=== PATIENT | female | born 1960 | race African-American/Black ===

== ENCOUNTER 2018-07-14 08:42 | Day surgery (SDC) | payer OTHER ==
[~2018-07-14] VITALS: Ht 157.5 cm; Wt 131.6 kg
[2018-07-14] VITALS (17 sets, daily range): BP systolic 92–135; BP diastolic 53–86; PULSE 84–104; RESP 11–22; Ht 157.5 cm; Wt 131.6 kg
[2018-07-14] MEDS ORDERED: MONT10TA21 PO (09:48)
[2018-07-14] MEDS ORDERED: ALBU18HF INHALATION (09:48)
[2018-07-14] MEDS ORDERED: INSU100C SQ (09:48)
[2018-07-14] MEDS ORDERED: INSU100I33 SC (09:48)
[2018-07-14] MEDS ORDERED: AMLO5TAB4 PO (09:48)
[2018-07-14] MEDS ORDERED: PROP60CA PO (09:48)
[2018-07-14] MEDS ORDERED: ONDA4TAB95 ORAL (09:48)
[2018-07-14] MEDS ORDERED: ARIP30TA4 PO (09:48)
[2018-07-14] MEDS ORDERED: ATOR20TA38 PO (09:48)
[2018-07-14] MEDS ORDERED: FLUT16SP17 NASAL (09:48)
[2018-07-14] MEDS ORDERED: TIOT18CA INHALATION (09:48)
[2018-07-14] MEDS ORDERED: FER325 PO (09:48)
[2018-07-14] MEDS ORDERED: ZOLP10TA PO (09:48)
[2018-07-14] MEDS ORDERED: GABA300C16 PO (09:48)
[2018-07-14] MEDS ORDERED: FURO20TA3 PO (09:48)
[2018-07-14] MEDS ORDERED: OMEP40CA6 PO (09:48)
[2018-07-14] MEDS ORDERED: MTF1000T PO (09:48)
[2018-07-14] MEDS ORDERED: NORT75CA ORAL (09:48)
[2018-07-14] MEDS ORDERED: LISI40TA3 PO (09:48)
[2018-07-14] MEDS ORDERED: NICO-544 TD (09:48)
[2018-07-14] MEDS ORDERED: HYDR-4011 PO (09:50)
[2018-07-14] MEDS ORDERED: CITA20TA8 PO (09:50)
--- NOTE | 2018-07-14 09:50 | HPN ---
Date/Time of Note Date/Time of Note DATE: 07/14/18 TIME: 09:50 Interval H&P Admission Note Pt. seen H&P reviewed: No system changes ANGELICA MOORE MD Jul 14, 2018 09:50
[2018-07-14] MEDS ORDERED: SOD CHLORIDE 0.9% 1,000 ML IV SCH (10:00)
[2018-07-14] MEDS ORDERED: KETAMINE (50 MG/ML) 10 ML VIAL ONE (13:44)
[2018-07-14] MEDS ORDERED: PROPOFOL 40 ML ONE (13:44)
[2018-07-14] MEDS ORDERED: MIDAZOLAM 1 MG/ML 2 ML INJ ONE (13:44)
[2018-07-14] MEDS ORDERED: LIDOCAINE 2% (SDV) 5 ML INJ ONE (13:44)
[2018-07-14] MEDS ORDERED: LIDOCAINE 1% (MDV) 20 ML INJ ONE (13:50)
[2018-07-14] MEDS ORDERED: FENTAnyl 50 MCG/ML VIAL ONE (13:56)
[2018-07-14] MEDS ORDERED: GLYCOPYRROLATE 0.4 MG INJ ONE (13:56)
[2018-07-14] MEDS ORDERED: LABETALOL HCL 20MG INJ IV PRN (14:00)
[2018-07-14] MEDS ORDERED: morphine (1 MG/ML) 10ML SYRINGE IV PRN ×2 (14:00)
[2018-07-14] MEDS ORDERED: HYDROmorphONE 1 MG/5 ML IV SYRINGE IV PRN ×3 (14:00)
[2018-07-14] MEDS ORDERED: DIPHENHYDRAMINE 50 MG INJ IV PRN (14:00)
[2018-07-14] MEDS ORDERED: OXYCODONE/ACETAMINOPHEN (5/325) TAB PO PRN ×2 (14:00)
[2018-07-14] MEDS ORDERED: ALBUTEROL 0.083% (NEB) 2.5 MG/3 ML AMP HHN PRN (14:00)
[2018-07-14] MEDS ORDERED: MEPERIDINE 25 MG INJ IV PRN (14:00)
[2018-07-14] MEDS ORDERED: FENTAnyl 50 MCG/ML VIAL IV PRN ×2 (14:00)
[2018-07-14] MEDS ORDERED: ONDANSETRON 4 MG INJ IV PRN (14:00)
--- NOTE | 2018-07-14 14:11 | PREAC ---
Date/Time of Note Date/Time of Note DATE: 07/14/18 TIME: 14:05 Anesthesia Eval and Record Evaluation Time Pre-Procedure Interview DATE: 07/14/18 TIME: 14:05 Age 58 Sex female NPO: 8 hrs Preoperative diagnosis anemia/neutrophilia Planned procedure bone marrow biopsy CT guided Past Medical History Past Medical History: Includes Cardio: HTN, CHF (pt denies having CHF) Endo: Diabetes Pulm: Sleep Apnea, Home CPAP, Asthma Neuro: Seizure disorder (in 2008), Other (reports that she gets spinal taps to release Headache pain , last time she had that was 3 years ago) GI: Morbid obesity Heme: Anemia Surgery & Anesthesia Issues No known issue Meds Anticoagulation: No Beta Alberto within 24 hr: No Reason Beta Alberto not given: Pt. not on B-Alberto Reported Medications Citalopram Hydrobromide* (Citalopram Hydrobromide*) 20 Mg Tablet, 20 MG PO DAILY, #30 TAB 07/14/18 Hydrocodone/Acetaminophen ([place] 5-325 Tablet) 1 Each Tablet, 1 TAB PO Q6 PRN for PAIN LEVEL 6-10, TAB 07/14/18 Lisinopril* (Lisinopril*) 40 Mg Tablet, 40 MG PO DAILY, #30 TAB 07/14/18 Furosemide* (Furosemide*) 20 Mg Tablet, 20 MG PO DAILY, #60 TAB 07/14/18 Amlodipine Besylate* (Norvasc*) 5 Mg Tablet, 5 MG PO DAILY, TAB 07/14/18 Fluticasone Propionate* (Fluticasone Propionate* Nasal) 50 Mcg/[place] - 16 Gm [place].susp, 2 SPRAYS NASAL DAILY, #1 BOTTLE TO EACH NOSTRIL 07/14/18 Montelukast Sodium* (Singulair*) 10 Mg Tablet, 10 MG PO QHS, #30 TAB 07/14/18 Tiotropium [place]* (Spiriva*) 18 Mcg Cap.w.dev, 1 CAP INHALATION DAILY, #30 CAP 07/14/18 Metformin* (Glucophage*) 1,000 Mg Tablet, 1000 MG PO BID, #60 TAB 07/14/18 Albuterol Sulfate* (Ventolin HFA*) 18 Gm Hfa.aer.ad, 2 PUFF INHALATION Q4H PRN for SHORTNESS OF BREATH, #1 INHALER 07/14/18 Nicotine* (Nicotine* Patch) 7 mg/day Patch, 2 PATCH TD DAILY, PATCH 07/14/18 Gabapentin* (Gabapentin*) 300 Mg Capsule, 300 MG PO TID, #90 CAP 07/14/18 Omeprazole* (Omeprazole*) 40 Mg Capsule.dr, 40 MG PO DAILY, #30 CAP 07/14/18 Ferrous Sulfate* (Ferrous Sulfate*) 325 Mg Tabec, 325 MG PO BID, TAB 07/14/18 Atorvastatin Calcium* (Atorvastatin Calcium*) 20 Mg Tablet, 20 MG PO QHS, #30 TAB 07/14/18 Propranolol Hcl* (Propranolol Hcl*) 60 Mg Cap.sa.24h, 120 MG PO DAILY, TAB 07/14/18 Insulin Lispro (Humalog) 100 Unit/1 Ml Cartridge, 20 UNIT SQ AC A, EA 07/14/18 Insulin Glargine,Hum.rec.anlog (Basaglar Kwikpen U-100) 100 Unit/1 Ml Insuln.pen, 32 UNIT SC QHS, EA 07/14/18 Zolpidem Tartrate* (Ambien*) 10 Mg Tablet, 10 MG PO QHS PRN for INSOMNIA, TAB 07/14/18 Aripiprazole* (Abilify*) 30 Mg Tablet, 30 MG PO DAILY, #30 TAB 07/14/18 Nortriptyline Hcl* (Nortriptyline Hcl*) 75 Mg Capsule, 1 TAB ORAL DAILY 07/14/18 Ondansetron Hcl* (Ondansetron Hcl*) 4 Mg Tablet, 1 TAB ORAL Q8 07/14/18 Current Medications Sodium Chloride 1,000 ml @ 30 mls/hr Q24H IV ; Start 07/14/18 at 10:00 Morphine Sulfate (morphine (REC)) 2 mg PACU ORDER PRN IV MILD PAIN 1-3; Start 07/14/18 at 14:00; Stop 07/14/18 at 18:00 Morphine Sulfate (morphine (REC)) 4 mg PACU ORDER PRN IV MOD PAIN 4-6; Start 07/14/18 at 14:00; Stop 07/14/18 at 18:00 Hydromorphone HCl (Dilaudid) 0.2 mg PACU PRN IV MILD PAIN 1-3; Start 07/14/18 at 14:00; Stop 07/14/18 at 18:00 Hydromorphone HCl (Dilaudid) 0.4 mg PACU PRN IV MOD PAIN 4-6; Start 07/14/18 at 14:00; Stop 07/14/18 at 18:00 Hydromorphone HCl (Dilaudid) 0.6 mg PACU PRN IV SEVERE PAIN 7-10; Start 07/14/18 at 14:00; Stop 07/14/18 at 18:00 Fentanyl (Sublimaze) 25 mcg PACU ORDER PRN IV MILD PAIN 1-3; Start 07/14/18 at 14:00; Stop 07/14/18 at 18:00 Fentanyl (Sublimaze) 50 mcg PACU ORDER PRN IV MOD PAIN 4-6; Start 07/14/18 at 14:00; Stop 07/14/18 at 18:00 Oxycodone/ Acetaminophen (Percocet (5/ 325)) 1 tab PACU ORDER PRN PO .PAIN 1-5; Start 07/14/18 at 14:00; Stop 07/14/18 at 18:00 Oxycodone/ Acetaminophen (Percocet (5/ 325)) 2 tab PACU ORDER PRN PO .PAIN 6-10; Start 07/14/18 at 14:00; Stop 07/14/18 at 18:00 Ondansetron HCl (Zofran Inj) 4 mg PACU ORDER PRN IV NAUSEA/VOMITING; Start 07/14/18 at 14:00; Stop 07/14/18 at 18:00 Labetalol HCl (Labetalol) 5 mg PACU ORDER PRN IV HIGH BLOOD PRESSURE; Start 07/14/18 at 14:00; Stop 07/14/18 at 18:00 Albuterol (Proventil 0.083% (Neb)) 2.5 mg PACU ORDER PRN HHN .WHEEZING; Start 07/14/18 at 14:00; Stop 07/14/18 at 18:00 Meperidine HCl (Demerol) 25 mg PACU ORDER PRN IV .RIGORS; Start 07/14/18 at 14:00; Stop 07/14/18 at 18:00 Diphenhydramine HCl (Benadryl) 25 mg PACU ORDER PRN IV .PRURITUS; Start 07/14/18 at 14:00; Stop 07/14/18 at 18:00 Meds reviewed: Yes Allergies Coded Allergies: Tetracyclines (Verified Allergy, Severe, 07/14/18) Fish Containing Products (Verified Allergy, Unknown, 07/14/18) fish oil (Verified Allergy, Unknown, 07/14/18) Uncoded Allergies: FISH (Allergy, Unknown, 07/14/18) Allergies Reviewed: Yes Labs/Studies Labs Reviewed: Reviewed by anesthesiologist test: N/A Pre-procedure Exam Last vitals Vital Signs Date Temp Pulse Resp B/P (MAP) Pulse Ox O2 O2 Flow FiO2 Time Delivery Rate 07/14/18 98.5 84 16 126/65 99 Room Air 09:54 (85) Airway: Adequate mouth opening, Adequate thyromental dist Mallampati: Mallampati III Teeth: Abnormal (dentures removed; some teeth remain on lower area) Lung: Normal Heart: Normal ASA Physical Status ASA physical status: 3 Emergency: None Planned Anesthetic General/MAC: MAC Pre-operative Attestations Prior to commencing anesthesia and surgery, the patient was re-evaluated, there was verification of: *The patient's identity *The results of appropriate recent lab work and preoperative vital signs *The above evaluation not changing prior to induction *Anesthetic plan, risk benefits, alternative and complications discussed with patient/family; questions answered; patient/family understands, accepts and wishes to proceed. SCOTT FIERRO Jul 14, 2018 14:11
--- NOTE | 2018-07-14 14:56 | PAC ---
Date/Time of Note Date/Time of Note DATE: 07/14/18 TIME: 14:54 Post-Anesthesia Notes Post-Anesthesia Note Last documented vital signs Vital Signs Date Temp Pulse Resp B/P (MAP) Pulse Ox O2 O2 Flow FiO2 Time Delivery Rate 07/14/18 98.5 99 84 91 16 16 126/65 99 99 Room 09:54 144 (85) 115/ Air [id number] 61 Activity: WNL Respiratory function: WNL Cardiovascular function: WNL Mental status: Baseline Pain reasonably controlled: Yes Hydration appropriate: Yes Nausea/Vomiting absent: Yes SCOTT FIERRO Jul 14, 2018 14:56
== END 2018-07-14 17:38 | disposition home or self-care (01) ==
LOC: SDS 08:42
PROVIDERS: ATTEND Radiology Diagnostic Radiology
DX: D72.829 Elevated white blood cell count, unspecified (principal); E11.9 Type 2 diabetes mellitus without complications; I11.0 Hypertensive heart disease with heart failure; I50.9 Heart failure, unspecified; Z79.84 Long term (current) use of oral hypoglycemic drugs; Z79.4 Long term (current) use of insulin
CPT/HCPCS: 38221; 77012; 82962; 88305; 88311; 88313; J1170; J2250; J2405; J3010; Z7610